=== PATIENT | female | born 1980 | race Caucasian/White ===

== ENCOUNTER 2019-07-24 16:27 | Emergency (ER) | payer OTHER ==
[2019-07-24] MEDS ORDERED: Sodium Chloride 0.9% 1,000 ML IV SCH ×2 (17:15→18:30)
--- NOTE | 2019-07-24 18:03 | CT ---
Head CT Technique: Multiple axial sections through the brain were obtained. Intravenous contrast was not utilized. Comparison: No prior intracranial imaging is available. Findings: Ventricles along with basal cisterns and sulci over the convexities are within normal limits for the patient's age. No abnormal no evidence of intracranial hemorrhage. No midline shift or mass-effect is seen. Bone window settings were reviewed. No acute calvarial abnormality is seen. Visualized mastoid sinuses and visualized paranasal sinuses are clear. Impression: 1. Nothing acute is appreciated on noncontrast head CT exam. Diagnostic code #1 This report was dictated in [place] Standard Time
--- NOTE | 2019-07-24 18:34 | EDM.PDOC ---
ED HPI GENERAL MEDICAL PROBLEM - General Chief Complaint: Cardiovascular Problem Stated Complaint: [facility] Time Seen by Provider: 07/24/19 16:44 Source of Information: Reports: Patient History Limitations: Reports: No Limitations - History of Present Illness INITIAL COMMENTS - FREE TEXT/NARRATIVE: patient is a 38-year-old female who presents via EMS with complaints of syncopal episode and vomiting. Patient states that she is felt, "queasy "all day. She states she's had a number of "soft stools ". She was at work and she went to the bathroom she states while she was there she had a large watery bowel movement. She then states she had a syncopal episode on the toilet where she fell up against the stall. When she regained consciousness she got up to go wash her hands and then had another syncopal episode while walking to the sink. Since the second syncopal episode, she has vomited 4 times. the fall was unwitnessed, however she thinks she did hit her head as she is having tenderness to her occipital region. She is not sure how long she was unconscious for. She denies any known sick contacts, however she states in the [place] town where she lives, [place], Norovirus is going around to the extent where they had to close down the schools to disinfect. She states that in the past she has had problems with dizziness and "vasovagal syncope " when she is sick, however, "not this bad". Headache Pain Score (Numeric/FACES): 6 - Related Data Allergies Allergy/AdvReac Type Severity Reaction Status Date / Time azithromycin [From Zithromax] Allergy Rash Verified 07/24/19 16:37 Sulfa (Sulfonamide Allergy Rash Verified 07/24/19 16:37 Antibiotics) Home Meds: Home Meds Empagliflozin [Jardiance] 10 mg PO DAILY 07/24/19 [History] Glimepiride 1 mg PO DAILY 07/24/19 [History] Liraglutide [Victoza] 1.8 mg SUBCUT DAILY 07/24/19 [History] Lisinopril [Zestril] 10 mg PO DAILY 07/24/19 [History] Ondansetron [Zofran ODT] 4 mg PO Q6H PRN #10 tab.dis 07/24/19 [Rx] Rosuvastatin [Crestor] 5 mg PO DAILY 07/24/19 [History] Past Medical History Genitourinary History: Reports: Other (See Below) Other Genitourinary History: yeast infection, bacterial vaginosis 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: Musculoskeletal History: Reports: Other (See Below) Other Musculoskeletal History: herniated disc Psychiatric History: Reports: Anxiety Endocrine/Metabolic History: Reports: Diabetes, Type II, Hypothyroidism - Past Surgical History HEENT Surgical History: Reports: Adenoidectomy, Naso-Sinus Surgery, Tonsillectomy GI Surgical History: Reports: Cholecystectomy Social & Family History - Family History Family Medical History: Noncontributory - Tobacco Use Smoking Status *Q: Never Smoker Second Hand Smoke Exposure: No - Caffeine Use Caffeine Use: Reports: Coffee - Recreational Drug Use Recreational Drug Use: No ED ROS GENERAL - Review of Systems Review Of Systems: Comprehensive ROS is negative, except as noted in HPI. ED EXAM, GENERAL - Physical Exam Exam: See Below Exam Limited By: No Limitations General Appearance: Alert, WD/WN, No Apparent Distress Respiratory/Chest: No Respiratory Distress, Lungs Clear, Normal Breath Sounds, No Accessory Muscle Use, Chest Non-Tender Cardiovascular: Normal Peripheral Pulses, Regular Rate, Rhythm, No Edema, No Gallop, No JVD, No Murmur, No Rub GI/Abdominal: Normal Bowel Sounds, Soft, Non-Tender, No Organomegaly, No Distention, No Abnormal Bruit, No Mass Extremities: Normal Inspection, Normal Range of Motion, Non-Tender, Normal Capillary Refill, No Pedal Edema Neurological: Alert, Oriented, CN II-XII Intact, Normal Cognition, Normal Gait, Normal Reflexes, No Motor/Sensory Deficits Psychiatric: Normal Affect, Normal Mood Skin Exam: Warm, Dry, Intact, Normal Color, No Rash EKG INTERPRETATION EKG Date: 07/24/19 Time: 16:32 Rhythm: NSR Rate (Beats/Min): 81 [place]: Normal P-Wave: Present QRS: Normal ST-T: Normal QT: Normal Course - Vital Signs Last Recorded V/S: Last Vital Signs Temp 98.4 F 07/24/19 16:31 Pulse 88 07/24/19 19:55 Resp 19 07/24/19 19:55 BP 115/80 07/24/19 19:55 Pulse Ox 97 07/24/19 19:55 Orthostatic Blood Pressure [ 91/53 Standing] Orthostatic Blood Pressure [ 97/59 Sitting] Orthostatic Blood Pressure [ 92/45 Supine] - Orders/Labs/Meds Orders: Active Orders 24 hr Category Date Time Status EKG Documentation Completion [RC] ASDIRECTED Care 07/24/19 16:32 Active EKG 12 Lead [EK] Stat Ther 07/24/19 16:32 Ordered Labs: Laboratory Tests 07/24/19 07/24/19 Range/Units 17:43 17:43 WBC 15.75 H (3.98-10.04) K/mm3 RBC 5.49 H (3.98-5.22) M/mm3 Hgb 15.5 (11.2-15.7) gm/dl Hct 45.7 H (34.1-44.9) % MCV 83.2 (79.4-94.8) fl MCH 28.2 (25.6-32.2) pg MCHC 33.9 (32.2-35.5) g/dl RDW Std Deviation 39.8 (36.4-46.3) fL Plt Count 263 (182-369) K/mm3 MPV 9.4 (9.4-12.3) fl Neut % (Auto) 88.4 H (34.0-71.1) % Lymph % (Auto) 5.3 L (19.3-51.7) % [place] % (Auto) 5.2 (4.7-12.5) % Eos % (Auto) 0.6 L (0.7-5.8) Baso % (Auto) 0.3 (0.1-1.2) % Neut # (Auto) 13.94 H (1.56-6.13) K/mm3 Lymph # (Auto) 0.83 L (1.18-3.74) K/mm3 [place] # (Auto) 0.82 H (0.24-0.36) K/mm3 Eos # (Auto) 0.09 (0.04-0.36) K/mm3 Baso # (Auto) 0.04 (0.01-0.08) K/mm3 Manual Slide Review Abnormal smear Sodium 135 L (136-145) mEq/L Potassium 3.9 (3.5-5.1) mEq/L Chloride 101 (98-107) mEq/L Carbon Dioxide 23 (21-32) mEq/L Anion Gap 14.9 (5-15) BUN 24 H (7-18) mg/dL Creatinine 0.8 (0.55-1.02) mg/dL Est Cr Clr Drug Dosing 76.15 mL/min Estimated GFR (MDRD) > 60 (>60) mL/min BUN/Creatinine Ratio 30.0 H (14-18) Glucose 132 H (74-106) mg/dL Calcium 9.0 (8.5-10.1) mg/dL Magnesium 1.9 (1.8-2.4) mg/dl Total Bilirubin 1.1 H (0.2-1.0) mg/dL AST 18 (15-37) U/L ALT 40 (14-59) U/L Alkaline Phosphatase 93 (46-116) U/L Total Protein 7.8 (6.4-8.2) g/dl Albumin 4.4 (3.4-5.0) g/dl Globulin 3.4 gm/dL Albumin/Globulin Ratio 1.3 (1-2) Meds: Medications Discontinued Medications Generic Name Dose Route Start Last Admin Trade Name Freq PRN Reason Stop Dose Admin Sodium Chloride 1,000 mls @ 999 mls/hr 07/24/19 17:15 07/24/19 17:18 Normal Saline IV 999 mls/hr ASDIRECTED TIA Administration Sodium Chloride 1,000 mls @ 150 mls/hr 07/24/19 18:30 07/24/19 18:40 Normal Saline IV 150 mls/hr ASDIRECTED TIA Administration Ondansetron HCl 4 mg 07/24/19 18:59 07/24/19 19:26 Zofran IVPUSH 07/24/19 19:00 4 mg ONETIME ONE Administration - Re-Assessments/Exams Free Text/Narrative Re-Assessment/Exam: 07/24/19 19:01 Patient's labs showed WBC 15.75, sodium 135, BUN 24. Potassium and magnesium were normal. Head CT was normal. EKG was negative for any acute findings. Patient is likely suffering from a viral gastroenteritis with a vasovagal syncope episode triggered by having a large liquid stool. Patient states that she has had similar syncopal episodes in the past when she has been sick. I will give her another dose of Zofran here in the ER. She'll be discharged home with instructions for clear liquid diet and then Zofran as needed for nausea. Discharge instructions as noted. Departure - Departure Time of Disposition: 19:01 Disposition: Home, Self-Care 01 Condition: Fair Clinical Impression: Viral gastroenteritis, Vasovagal syncope Prescriptions: Ondansetron [Zofran ODT] 4 mg PO Q6H PRN #10 tab.dis PRN Reason: Nausea Instructions: Viral Gastroenteritis, Adult, [id number], Syncope, [id number] Referrals: PCP,Unknown [Primary Care Provider] - Forms: ED Department Discharge Additional Instructions: you were seen in the emergency Department today for having a syncopal episode while at work. A CT was done of your head and was normal. The EKG done of your heart was also normal. It is likely that you are suffering from a viral gastroenteritis with subsequent vasovagal syncope. I recommended to rest and ensure adequate fluid intake in the form of Gatorade, Powerade, or Pedialyte over the next couple days. A prescription for Zofran has been sent to an [facility] in [facility]. If you should experience any new or worsening symptoms , please not hesitate to return to the emergency department. Sepsis Event Note - Evaluation Sepsis Screening Result: No Definite Risk - Focused Exam Vital Signs: Vital Signs Temp Pulse Resp BP Pulse Ox 07/24/19 19:55 88 19 115/80 97 07/24/19 16:31 98.4 F 82 17 90/54 L 98 Date Exam was Performed: 07/24/19 Time Exam was Performed: 20:24 - My Orders Last 24 Hours: My Active Orders 07/24/19 16:32 EKG Documentation Completion [RC] ASDIRECTED EKG 12 Lead [EK] Stat - Assessment/Plan Last 24 Hours: My Active Orders 07/24/19 16:32 EKG Documentation Completion [RC] ASDIRECTED EKG 12 Lead [EK] Stat
[2019-07-24] MEDS ORDERED: Ondansetron 4 MG/2 ML SDV IVPUSH ONE (18:59)
== END 2019-07-24 19:32 | disposition home or self-care (01) ==
LOC: EDBD 16:27 → JD.ED 16:27
DX: R55 Syncope and collapse (principal); A08.4 Viral intestinal infection, unspecified; E11.9 Type 2 diabetes mellitus without complications; Z79.84 Long term (current) use of oral hypoglycemic drugs; Z88.1 Allergy status to other antibiotic agents; Z88.2 Allergy status to sulfonamides
CPT/HCPCS: 36415; 70450; 80053; 83735; 85025; 93005; 96361; 96374; 99285; J2405; J7030; 93010; 99283